=== PATIENT | female | born 1955 | race Two or more races ===

== ENCOUNTER 2024-11-08 11:32 | Outpatient (RCR) | payer MEDICARE, MEDICAID, SELFPAY ==
--- NOTE | 2024-11-08 12:02 | PTNOTE_ITS ---
PT OP Initial Eval Patient Information Outpatient Physical Therapy Treatment Date: 11/08/24 Visit Reasons: Rt knee of below knee amputation Medical Diagnosis: Z89.511 Treatment Dx #1: Decreased WB tolerance R LE Treatment Dx #2: Decreased ROM R knee Start of Care: 11/08/24 Date of Onset: 2018 Smoking Status Smoking Status: Never smoker Initial Assessment Subjective: Pt is 69 yr old bulgarian speaking female s/p R below knee amputation in 2019 presents in W/C with her . She says she was using a prosthetic leg but it hurt the residual limb and didn't fit tight and she fell while walking with it and then she hasn't used to walk since then. She reports a new prosthesis was made but they lost the phone number to [employer] and haven't called or picked it up. PLOF: prior to amputation pt was independent with functional mobility x community distances PMH: HTN, DM, PAD Pt goal: to walk Objective: R hip ArOM: -22 deg flexion contracture R knee flexion: 95 deg R Knee extension: -55 deg Transfers: from W/C to mat table with supervision TTP: moderate of medial knee bony protrusion min of residual limb and incision scar Standing: not tested since she doesn't have the prosthetic leg today Assessment: Pt presents with hip and knee flexion contractures likely from sitting in W/C and not extending those joints. The knee flexion contracture will limit standing tolerance once she gets the new prosthesis. Pt may benefit from skilled therapy to improve R knee and hip extension ROM and improve WB tolerance with new prosthesis and rehab potential is guarded until I see her stand with the prosthetic leg. Short Term and Snf Goals 1. Ind with HEP 2. Improved R hip extension to neutral 3. Improved R knee extension to full 4. Sit to stand transfer with R prosthetic leg with supervision and hand support on walker 5. Ambulate xHH distances with walker and supervision Treatment Plan 90 day POC in order to complete visits. Pt requires skilled therapy in order to increase strength, decrease pain and improve function. Rx may consist of Therex, Manual therapy, gait training and Neuromuscular re-education. Modalities as indicated-moist heat packs, ice packs, estim Frequency and Duration: 1-2x a week for 8 visits plus the evaluation Certification Dates: 11/08/24 to 02/05/25 Procedure Charges OP PT Eval Mod Complex 30 minutes: Yes
== END 2024-11-24 23:59 | disposition home or self-care (01) ==
LOC: CPTX 11:32
PROVIDERS: PCP Surgery Vascular Surgery; Referring Provider Surgery Vascular Surgery; Visit Provider Surgery Vascular Surgery
DX: M24.551 Contracture, right hip (principal); M24.561 Contracture, right knee; Z89.511 Acquired absence of right leg below knee; I10 Essential (primary) hypertension; E11.9 Type 2 diabetes mellitus without complications
CPT/HCPCS: 97162

== ENCOUNTER 2025-06-17 03:58 | Emergency (ER) | payer MEDICARE, MEDICAID, SELFPAY ==
--- NOTE | 2025-06-17 04:02 | PD.EDAMS ---
Altered Mental Status RME/HPI General Chief Complaint: Altered Mental Status Stated Complaint: LOW BLOOD SUGAR Time Seen by Provider: 06/17/25 04:01 Arrival date/time: 06/17/25 03:58 Mode of arrival: EMS RME / HPI RME / HPI narrative: DR. CERVANTES MAIN ED EVALUATION: Patient arrives by EMS after family had awoken patient and appeared confused with delayed response time whose Accu-check was 40. Paramedics were summoned and began patient on D10 infusion and improved Accu-check with subsequent increase to 211. No antecedent illness, fever, vomiting, diarrhea, or seizures. PMH: Hypercholesterolemia, Hypertension, Diabetes Mellitus Type 2 PSH: Amputation, , Tubal Ligation Allergies: NKDA Social: Negative Related Data Home Medications ?Medication ?Instructions ?Recorded ?Confirmed acetaminophen 500 mg tablet 500 mg PO Q6H PRN Pain 09/30/18 05/16/23 gabapentin 100 mg capsule 100 mg PO BID 09/30/18 05/16/23 (Neurontin) amlodipine 5 mg tablet (Norvasc) 10 mg PO DAILY 05/11/23 05/16/23 atorvastatin 80 mg tablet 80 mg PO QDAY 05/11/23 05/16/23 linagliptin 5 mg tablet (Tradjenta) 5 mg PO QDAY 05/11/23 05/16/23 metoprolol succinate 25 mg 25 mg PO DAILY 05/11/23 05/16/23 tablet,extended release 24 hr terazosin 2 mg tablet 2 mg PO BID 05/11/23 05/16/23 Previous Rx's ?Medication ?Instructions ?Recorded famotidine 40 mg tablet 40 mg PO QDAY #30 tabs 05/17/23 pantoprazole 40 mg tablet,delayed 40 mg PO QDAY #30 tabs 05/17/23 release (Protonix) Allergies Allergy/AdvReac Type Severity Reaction Status Date / Time No Known Allergies Allergy Verified 05/09/23 17:30 Review of Systems Review of Systems Systems Reviewed: All systems reviewed, normal except as documented Past Medical History Past Medical History CARDIAC: Positive Hypercholesterolemia and Hypertension GENITOURINARY: Positive Genitourinary Disorders REPRODUCTIVE: Positive Previous Pregnancies ENDOCRINE: Positive Endocrine Disorders and Diabetes Mellitus Type 2 OTHER HISTORY: Positive Blood Transfusions Family History FAMILY HISTORY: Positive Family Cardiac Disorders and Family Cancer Surgical History SURGICAL: Positive Amputation, Tubal Ligation and Section ED Exam Narrative Physical exam: GEN. APPEARANCE: The patient is alert awake oriented X-3 under no distress, lying down comfortably, does not look ill/toxic. Patient has good eye contact. Patient is cooperative. Notably tachycardic. VITALS: All vitals were reviewed and the pulse ox is 99%, which is normal according to my interpretation HEENT: Normocephalic, atraumatic and nontender. Pupils are equal and reactive. Oral mucosa is moist. NECK: Supple, nontender, no meningismus, no JVD. There is no thyromegaly and no lymphadenopathy. CHEST: Nontender on palpation no deformity and no crepitus. CARDIOVASCULAR: Tachycardic, no murmur or gallop rub or extra beats. LUNGS: Clear to auscultation bilaterally with symmetrical chest rise. No laboring tachypnea or wheezing. No intercostal subcostal retraction. No rales and no rhonchi. ABDOMEN: Soft, flat, nontender to palpation, no guarding or rebound tenderness. There are no abnormal masses palpated. No pulsatile masses or bruits. Active and normal bowel sounds. EXTREMITIES: Normal inspection and palpation. No edema. No cyanosis. Patient is able to move all 4 extremities well SKIN: Warm and dry, no rashes noted. MUSCULOSKELETAL: No lumbar or midline bony tenderness. There is no CVA tenderness. No paraspinal muscle spasm or tenderness. NEURO: Cranial nerves II through XII grossly intact. There are no focal neurologic deficits noted. GCS is 15 PSYCHIATRIC: Patient is in normal mood and affect, cooperative. LYMPHATICS: No major lymphadenopathy noted. Course Quality Measures none Orders Category Date Time Status Bedside Blood Glucose Q1HR Care 06/17/25 04:03 Active Bedside Blood Glucose Q1HR Care 06/17/25 04:05 Completed [place] NOW Care 06/17/25 04:04 Active Continuous Pulse Oximetry NOW Care 06/17/25 04:04 Completed EKG (ED ONLY) *Do not use* NOW Care 06/17/25 04:05 Completed Insert IV NOW Care 06/17/25 04:05 Active NPO NOW Care 06/17/25 04:05 Active EKG (ED Only) Stat Exams 06/17/25 04:05 Draft Acetaminophen Stat Lab 06/17/25 04:24 Completed Alcohol, Blood Medical Stat Lab 06/17/25 04:24 Completed CBC Stat Lab 06/17/25 04:24 Completed Comprehensive Metabolic Panel Stat Lab 06/17/25 04:24 Completed Drug Screen,Urine Stat Lab 06/17/25 05:51 Completed Magnesium Stat Lab 06/17/25 04:24 Completed Partial Thromboplastin Time Stat Lab 06/17/25 04:24 Completed Prothrombin Time with INR Stat Lab 06/17/25 04:24 Completed Thyroid Stimulating Hormone Stat Lab 06/17/25 04:24 Completed Urinalysis, C/S if Indicated Stat Lab 06/17/25 05:51 Completed Urine Culture Stat Lab 06/17/25 05:51 Received Sodium Chloride 0.9% 250 ml [Ns] 250 ml Med 06/17/25 04:10 Discontinued IV 250 mls/hr Sodium Chloride 0.9% 250 ml [Ns] 250 ml Med 06/17/25 05:43 Discontinued IV 999 mls/hr Oxygen Delivery NOW RT 06/17/25 04:05 Active Vital Signs Vital signs: Vital Signs Temperature 97.3 F 06/17/25 04:08 Respiratory Rate 14 06/17/25 04:08 Blood Pressure 168/98 H 06/17/25 04:08 Pulse Oximetry (%) 99 06/17/25 04:08 Oxygen Delivery Method Room Air 06/17/25 04:08 Altered Mental Status MDM Narrative MDM Narrative:: Scribe Attestation: IAmira am scribing for and in the presence of Dr. Noe. Provider Notation: Although this document has been carefully reviewed, there may still be some phonetic and other typographical errors. These errors are purely grammatical due to imperfections in the software program and should not be construed in any way to compromise the substance of the patient's medical care during this visit. Patient arrives by EMS after family had awoken patient and appeared confused with delayed response time whose Accu-check was 40. Paramedics were summoned and began patient on D10 infusion and improved Accu-check with subsequent increase to 211. Please see PE findings. Laboratory markers are currently pending, as is UA. Patient was notably tachycardic, mentating well, and by Accu-check, patient has been U-glycemic. Will require further evaluation, monitoring, and likely discharge home, and will modified insulin regimen. Patient is currently on Lantis 25 units in AM and PM. Patient data External records reviewed:: [facility] previous records (Reviewed prior ED records from 05/14/23. Patient was seen for Acute upper gastrointestinal bleeding.) and EMS form Clinical information provided by:: EMS Social determinants that could affect healthcare access:: none Patient has the following chronic illnesses:: Hypercholesterolemia, Hypertension, Diabetes Mellitus Type 2 How is presenting disease/condition affected by chronic disease/condition?: exacerbated by Evaluation data The following diagnostics were reviewed and interpreted by me:: lab results and EKG tracing(s) (EKG at 04:29 shows sinus tachycardia rhythm at 108, normal axis, no ectopy, no signs of acute ischemia, per my interpretation.) Lab and/or radiology exams considered but not ordered:: None Interpretation Summary: See MDM above Medications / Prescriptions Medications or Prescriptions considered but not ordered:: None Medication administrations:: Medication Administration History Discontinued Medications Sodium Chloride (Ns) 250 mls @ 250 mls/hr IV .Q1H ONE Stop: 06/17/25 05:09 Last Infusion: 06/17/25 05:25 Dose: Infused Documented By: Admin: 06/17/25 04:25 Dose: 250 mls/hr Documented By: CODEY Sodium Chloride (Ns) 250 mls @ 999 mls/hr IV .Q16M ONE Stop: 06/17/25 05:58 Last Infusion: 06/17/25 06:13 Dose: Infused Documented By: Admin: 06/17/25 05:57 Dose: 999 mls/hr Documented By: CODEY See above if any Consultations Consultation(s) initiated? (list below): No Diagnosis Differential diagnosis altered mental status: altered mental status, delirium, hypoglycemia, hyponatremia and sepsis Most likely diagnosis given after review of the tests above:: Insulin reaction/Hypoglycemic episode Admission Indicated Admission indicated?: not indicated Explain why admission is indicated or not indicated:: Pending diagnostic results and final disposition Admission Request Was there a request for admission?: No Disposition Plan Disposition Plan: other (specify) (Signed out to Dr. Desouza at 6 AM.) Discharge Plan Prescriptions/Referrals Prescriptions/Med Rec: No Action acetaminophen 500 mg Tablet 500 mg PO Q6H PRN (Reason: Pain) gabapentin [Neurontin] 100 mg Capsule 100 mg PO BID atorvastatin 80 mg Tablet 80 mg PO QDAY amlodipine [Norvasc] 5 mg Tablet 10 mg PO DAILY terazosin 2 mg Tablet 2 mg PO BID metoprolol succinate 25 mg Tablet Extended Release 24 Hr 25 mg PO DAILY Tradjenta 5 mg Tablet 5 mg PO QDAY famotidine 40 mg tablet 40 mg PO QDAY Qty: 30 0RF pantoprazole [Protonix] 40 mg tablet,delayed release (DR/EC) 40 mg PO QDAY Qty: 30 0RF Problem List Clinical Impression: Hypoglycemic episode in patient with diabetes mellitus Patient/Caregiver Discharge Instructions Print Language: English
--- NOTE | 2025-06-17 04:05 | EKG_ITS ---
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
[2025-06-17 04:08] VITALS: BP 168/98; RESP 14; TEMP 36.3; O2SAT 99
[2025-06-17 04:09] VITALS: PULSE 104; RESP 16; O2SAT 98
[2025-06-17 04:16] VITALS: BMI 23.8
[2025-06-17] MEDS: SODIUM CHLORIDE 0.9% 250 ML 250 ML IV (04:25)
[2025-06-17 04:27] VITALS: PULSE 109; PULSE 111; RESP 14; O2SAT 98
[2025-06-17 05:20] LABS: Basophils # (Auto) 0.0 Thou/mm3 (0.0-0.2); Basophils % (Auto) 0 % (0-2.5); Eosinophils # (Auto) 0.1 Thou/mm3 (0.0-0.5); Eosinophils % (Auto) 1 % (0-10); Hematocrit 36.2 % (36.0-46.0); Hemoglobin 12.0 g/dL (12.0-16.0); Immature Granulocytes Auto 0.02 Thou/mm3 (0.00-0.00); Lymphocytes # (Auto) 2.9 Thou/mm3 (1.0-4.8); Lymphocytes % (Auto) 32 % (10-50); Mean Corpuscular HGB Conc 33.1 g/dl (31.0-37.0); Mean Corpuscular Hemoglobin 30.2 pg (25.0-35.0); Mean Corpuscular Volume 91 fL (80-100); Monocytes # (Auto) 0.7 Thou/mm3 (0.0-0.8); Monocytes % (Auto) 8 % (0-12); Neutrophils # (Auto) 5.4 Thou/mm3 (1.8-7.7); Neutrophils % (Auto) 59 % (37-80); Nucleated Red Blood Cell # 0.00 Thou/mm3 (0.00-0.00); Nucleated Red Blood Cell % 0 /100 WBC (0); Platelet Count 203 Thou/mm3 (140-440); RDW Standard Deviation 43.8 fL (36.4-46.3); Red Blood Count 3.98 Miln/mm3 (4.00-5.20); White Blood Count 9.2 Thou/mm3 (3.6-11.0)
[2025-06-17 05:40] LABS: INR 1.0 (0.9-1.3); Partial Thromboplastin Time 27.7 Seconds (22.0-36.0); Prothrombin Time 10.3 Seconds (9.0-12.2)
[2025-06-17] MEDS: SODIUM CHLORIDE 0.9% 250 ML 250 ML 999 ML IV (05:57)
[2025-06-17 05:59] LABS: Collection Type, Urine Clean Catch
[2025-06-17 06:08] VITALS: BP 149/67; PULSE 98; RESP 16; TEMP 36.8; O2SAT 99
[2025-06-17 06:09] LABS: Amphetamine/Methamp Scrn,U Negative (Negative); Barbiturate Screen,Urine Negative (Negative); Benzodiazepines Screen,Urine Negative (Negative); Benzoylecgonine Screen, Ur Negative (Negative); Fentanyl Screen,Urine Negative (Negative); Opiate Screen,Urine Negative (Negative); THC Screen,Urine Negative (Negative)
[2025-06-17 06:13] LABS: Bacteria,Urine 3+; Bilirubin,Urine Negative (Negative); Blood,Urine Negative (Negative); Clarity,Urine Clear (Clear/Hazy); Color,Urine Lt-Yellow (Lt Yel-Yel); Glucose, Urine 1+ (Negative); Ketones,Urine Negative (Negative); Leukocyte Esterase,Urine Positive (Negative); Nitrite,Urine Negative (Negative); PH,Urine 6.0 (5.0-7.0); Protein,Urine 1+ (Neg - Trace); RBC,Urine 4 /hpf (0-3); Specific Gravity,Urine 1.010 (1.001-1.035); Squamous Epithelial Cell,Urine 6 /hpf (0-5); Transitional Epi Cells,Urine 2 /hpf (0-5); Urobilinogen,Urine Negative mg/dL (0.0-1.0); WBC,Urine 57 /hpf (0-5)
[2025-06-17 06:28] LABS: Acetaminophen < 2.0 mcg/mL (10.0-20.0); Alanine Aminotransferase 8 U/L (10-49); Albumin, Serum 4.5 gm/dL (3.4-4.8); Albumin/Globulin Ratio 2.0 (1.2-2.2); Alcohol, Blood Medical < 3.0 mg/dL (0-10.0); Alkaline Phosphatase 90 U/L (46-116); Anion Gap 10 (7-16); Aspartate Amino Transferase 19 U/L (0-34); BUN/Creatinine Ratio 9 Ratio (12-20); Bilirubin,Total 0.4 mg/dL (0.3-1.2); Blood Urea Nitrogen 16 mg/dL (9-23); Calcium 9.0 mg/dL (8.3-10.6); Calcium (Corrected) 9.0 mg/dL (8.5-10.1); Carbon Dioxide 21.6 mMol/L (20.0-31.0); Chloride 107 mMol/L (98-107); Creatinine (Component) 1.8 mg/dL (0.6-1.3); Estimated Creatinine Clearance 23.0 mL/min (>60); Globulin 2.3 gm/dL (2.3-3.5); Glucose 145 mg/dL (74-106); Magnesium 1.8 mg/dL (1.6-2.6); Osmolality,Calculated 281 (275-295); Potassium 4.1 mMol/L (3.4-5.1); Sodium 139 mMol/L (136-145); Thyroid Stimulating Hormone 2.80 uIU/mL (0.55-4.78); Total Protein 6.8 gm/dL (5.7-8.2); eGFR 30 See Note
[2025-06-17 07:02] LABS: Culture Indicated,Urine Yes
--- NOTE | 2025-06-17 07:26 | EDNOTE_ITS ---
Emergency Room Addendum Addendum Narrative: Patient signed out to me by Dr. Noe pending lab results. Labs reviewed and noted to have mildly elevated creatinine of 1.8 increased from previous baseline a couple of years ago. Also urinalysis appears consistent with UTI with WBCs of 57, 3+ bacteria, 4 RBCs. Given the low blood sugar earlier this morning, is likely UTI related. She is feeling well at this time and is ANO x 4. Given dose of IV Rocephin, advised on monitoring blood glucose at home and e nsuring adequate p.o. intake to prevent further blood sugar dips and to also hold or decrease her insulin should her blood sugar be on the lower side of normal. She has an appointment with her PCP later today and is advised to keep this appointment to further discuss her insulin. Stable for discharge home at this time. Strict return precautions were advised. MEDICAL DECISION MAKING This patient presented after a D10 infusion for hypoglycemia, with a documented blood sugar of 40 prior to arrival. On evaluation after fluid bolus and initial d10, she was feeling improved and stable. Laboratory studies revealed urinalysis findings consistent with a urinary tract infection (3+ bacteria, 57 WBCs, 4 RBCs, 6 squamous cells, negative nitrites) and evidence of chronic kidney disease (creatinine 1.8, BUN 16). CBC was unremarkable. The patient is being discharged home with instructions to monitor blood sugar, maintain appropriate oral intake, and hold insulin if blood sugar is low. Treatment for UTI is planned, and she was advised to keep her primary care appointment later today at 16:00. Given her improved status, stable exam, and close follow-up, discharge is appropriate. Dx: UTI, hypoglycemia Dispo: [facility]
[2025-06-17 07:27] VITALS: PULSE 93
[2025-06-17 07:31] VITALS: BP 153/64; PULSE 92; RESP 18; TEMP 37.1; O2SAT 97
[2025-06-17] MEDS: cefTRIAXone/D5w 1gm IV premix 1 GM/50 ML BAG IV (07:33)
== END 2025-06-17 08:07 | disposition home or self-care (01) ==
PROVIDERS: Emergency Medicine; Emergency Provider Family Medicine; PCP Physician Assistant
DX: N39.0 Urinary tract infection, site not specified (principal); E11.649 Type 2 diabetes mellitus with hypoglycemia without coma; E78.00 Pure hypercholesterolemia, unspecified; I10 Essential (primary) hypertension; Z79.84 Long term (current) use of oral hypoglycemic drugs
CPT/HCPCS: 36415; 80053; 80307; 80320; 80329; 81001; 83735; 84443; 85025; 85610; 85730; 87077; 87086; 87186; 93005; 96361; 96365; 99284; J0696; J7050; G0480